=== PATIENT | male | born 2000 | race African-American/Black ===

== ENCOUNTER 2024-04-14 10:27 | Emergency (ER) | payer MEDICAID ==
[~2024-04-14] VITALS: Ht 167.6 cm; Wt 56.0 kg
[2024-04-14 10:39] VITALS: O2SAT 100
[2024-04-14 11:46] LABS: BASOPHILS % 0.3 % (0.0-2.0); EOSINOPHILS % 0.1 % (0.0-5.0); HEMATOCRIT. 44.6 % (42.0-52.0); HEMOGLOBIN. 14.5 g/dL (14.0-18.0); LYMPHOCYTES % 7.2 % (20.0-50.0); MEAN CORPUSCULAR HGB CONC 32.4 g/dL (31.0-37.0); MEAN CORPUSCULAR VOLUME 83.4 fL (80.0-94.0); MEAN PLATELET VOLUME 8.5 fl (7.4-10.4); MONOCYTES % 10.1 % (2.0-8.0); NEUTROPHILS % 82.3 % (40.0-76.0); PLATELET 215 x1000/uL (130-400); RED BLOOD CELL COUNT 5.35 mill/uL (4.7-6.1); RED CELL DISTRIBUTION WIDTH 13.4 % (11.6-14.6); WHITE BLOOD COUNT 11.4 x1000/uL (4.5-11.0)
[2024-04-14 11:50] LABS: CHLORIDE 98 mEq/L (98-107); POTASSIUM 4.2 mEq/L (3.5-5.1); SODIUM 133 mEq/L (136-145)
[2024-04-14 11:51] LABS: CALCIUM 11.2 mg/dL (8.7-10.4); CARBON DIOXIDE 28 mEq/L (21-32)
[2024-04-14 11:56] LABS: GLUCOSE 102 mg/dL (70-105); UREA NITROGEN BLOOD 17 mg/dL (9-23)
[2024-04-14 11:58] LABS: ALANINE AMINOTRANSFERASE 22 IU/L (10-49); ALBUMIN 5.4 g/dL (3.2-4.8); ASPARTATE AMINOTRANSFERASE 30 IU/L (<34); BILIRUBIN DIRECT 0.2 mg/dL (<=3.0)
[2024-04-14 11:59] LABS: BILIRUBIN TOTAL 0.6 mg/dL (0.1-1.0); PROTEIN TOTAL 8.8 g/dL (6.0-8.3)
[2024-04-14] MEDS ORDERED: ONDA4TAB11 PO (12:31)
[2024-04-14 12:45] VITALS: BP 121/75; PULSE 83; RESP 17; TEMP 97.5
== END 2024-04-14 12:50 | disposition home or self-care (01) ==
LOC: EDBD 10:44 → ER 10:44
DX: R11.2 Nausea with vomiting, unspecified (principal)
CPT/HCPCS: 36415; 80048; 80076; 85025; 99283